=== PATIENT | male | born 1980 | race African-American/Black ===

== ENCOUNTER 2019-09-20 04:01 | Emergency (ER) | payer BC, OTHER ==
[~2019-09-20] VITALS: Ht 167.6 cm; Wt 90.7 kg
[2019-09-20] MEDS ORDERED: TESSALON PERLE100 MG PO (06:19)
[2019-09-20 06:40] VITALS: BP 178/115
== END 2019-09-20 06:41 | disposition home or self-care (01) ==
LOC: ER 04:01
DX: J06.9 Acute upper respiratory infection, unspecified (principal); R04.2 Hemoptysis; Z20.828 Contact with and (suspected) exposure to other viral communicable diseases; F17.210 Nicotine dependence, cigarettes, uncomplicated